=== PATIENT | male | born 1980 | race African-American/Black ===

== ENCOUNTER 2022-04-07 12:42 | Emergency (ER) | payer BC ==
[2022-04-07 13:27] LABS: ESTIMATED GFR 70 mL/min (>60)
[2022-04-07 14:39] LABS: CORONAVIRUS COVID-19 NAA NEGATIVE (NEGATIVE)
[2022-04-07] MEDS: Iopamidol 755 Mg/ML 100 ML Bottle IV ONE (14:47)
== END 2022-04-07 15:45 | disposition home or self-care (01) ==
LOC: FB.ED 12:42
DX: R00.2 Palpitations (principal); R03.0 Elevated blood-pressure reading, without diagnosis of hypertension; R79.89 Other specified abnormal findings of blood chemistry; Z88.0 Allergy status to penicillin; Z20.822 Contact with and (suspected) exposure to COVID-19
CPT/HCPCS: 0241U; 36415; 71275; 80053; 84443; 84484; 85025; 85379; 86140; 93005; 99285; Q9967